=== PATIENT | female | born 1945 | race Caucasian/White ===

== ENCOUNTER 2017-01-02 23:24 | Observation (INO) | payer OTHER ==
[2017-01-02] MEDS ORDERED: ASPIRIN ONE (23:32)
[2017-01-02] MEDS ORDERED: ASPIRIN PO STA (23:33)
[2017-01-02 23:54] LABS: MANUAL DIFF NEEDED? NO
[2017-01-03] MEDS ORDERED: NITROGLYCERIN TOP ONE
--- NOTE | 2017-01-03 00:11 | PROVIDER DOCUMENTATION ---
HPI-Chest Pain - General Chief Complaint: Chest Pain Stated Complaint: CHEST PAIN Time Seen by Provider: 01/02/17 23:32 Source: patient (Patient is a 71 year old obese white female with history of CAD (S/P AR 3 yrs ago,S/P cardiac stents,followed by Dr. Galindo in [place]), hyperlipidemia, and htn who presents with burning left sided chest pain that radiated to left jaw and arm- onset at 745pm tonight while at rest. Denies diaphoresis. Currently chest pain free. Patient took 325mg aspirin this am. Followed by Dr. Redman. Patient also reports associated nausea,shortness of breath, and palpitations this evening.) Allergies/Adverse Reactions: Patient Allergies Allergy/AdvReac Type Severity Reaction Status Date / Time Penicillins Allergy HIVES Verified 01/02/17 23:35 Home Medications: Home Medication List Medication Instructions Recorded Confirmed Last Taken Type Ezetimibe [Zetia] 10 mg PO QHS 12/09/14 01/03/17 01/02/17 History Aspirin 325 mg PO DAILY 11/01/15 01/03/17 01/02/17 History Furosemide 40 mg PO DAILY 11/01/15 01/03/17 01/02/17 History Nitroglycerin Sl [Nitroglycerin] 0.4 mg SL PRN PRN 11/01/15 01/03/17 Unknown History PRAVAstatin [Pravachol] 40 mg PO QHS 11/01/15 01/03/17 01/02/17 History Prasugrel HCl [Effient] 5 mg PO DAILY 11/01/15 01/03/17 01/02/17 History Levothyroxine [Synthroid] 25 microgm PO DAILY #30 tablet 11/04/15 01/03/17 2 Weeks Ago Rx Acetaminophen with Codeine 1 tab PO Q8H PRN PRN 01/02/17 01/02/17 01/02/17 History [Tylenol with Codeine #3] Albuterol Sulfate [Proair Hfa] 01/02/17 Unknown History Diltiazem HCl [Diltiazem ER] 120 mg PO DAILY 01/02/17 01/02/17 01/02/17 History Lisinopril 10 mg PO BID 01/02/17 01/02/17 01/02/17 History Meloxicam 7.5 mg PO DAILY PRN 01/02/17 01/02/17 Unknown History Potassium Chloride [Klor-Con M20] 20 meq PO DAILY 01/02/17 01/02/17 01/02/17 History - History of Present Illness-CP Location: reports: other (left sided chest pain) Chest Pain Radiation: reports: jaw, other (left arm) Quality of Pain: reports: burning Onset/Duration: abrupt (onset about 745pm tonight) Timing: other (resolved on arrival) Context/Activities at Onset: reports: rest Modifying Factors: improves with: nothing Associated Symptoms: denies: diaphoresis Review of Systems - Adult - REVIEW OF SYSTEMS - ADULT Constitutional: denies: chills, fever Eyes: reports: no symptoms reported Ears, Nose, Mouth & Throat: reports: no symptoms reported Cardiovascular: reports: chest pain, palpitations Respiratory: reports: shortness of breath Gastrointestinal: reports: nausea. denies: abdominal pain, vomiting Genitourinary: reports: no symptoms reported Musculoskeletal: reports: no symptoms reported Integumentary: reports: no symptoms reported Neurological: reports: no symptoms reported Psychiatric: reports: no symptoms reported Past History - Adult - PAST MEDICAL HISTORY-ADULT Review of Records: reports: Old Records Reviewed, Nursing Assessment Review, Medications Reviewed, Social history reviewed & non-contributory. Major Childhood Illnesses: reports: denies history Cardiovascular: reports: CAD, HTN, hyperlipidemia Respiratory: reports: denies history Gastrointestinal: reports: denies history Obstetrical/Gynecological: reports: denies history Genitourinary: reports: denies history Musculoskeletal: reports: denies history Neurological: reports: denies history Endocrine/Immune: reports: denies history Other Conditions: reports: denies history - PRIOR SURGERIES/PROCEDURES Surgical/Procedure History: reports: cholecystectomy, BTL - IMMUNIZATION STATUS Childhood Immunizations: See Nurse Assessment Flu Vaccine: See Nurse Assessment - FAMILY HISTORY Family History: reviewed, not pertinent Physical Exam-General - CONSTITUTIONAL General Appearance: alert, no apparent distress, other (nondiaphoretic) - EYES Eyes: other (clear) - HEAD, EARS, NOSE, MOUTH & THROAT HENMT: moist mucous membranes, normal ENT inspection - NECK Neck: non-tender, full range of motion, supple - RESPIRATORY Respiratory: lungs clear, decreased breath sounds - CARDIOVASCULAR Cardiovascular: regular rate, rhythm - GASTROINTESTINAL (ABDOMEN) Abdominal Exam: non tender, soft. negative: guarding, rebound - GENITOURINARY Rectal Exam: deferred - LYMPHATIC Lymphatic: no adenopathy - MUSCULOSKELETAL Back Exam: normal inspection, no CVA tenderness Extremity: normal range of motion, non-tender - SKIN Integumentary: normal color, normal turgor - NEUROLOGIC Neurologic: grossly normal - PSYCHIATRIC Psych/Mental Status: anxious Progress - EKG 1 Time of EKG reading by physician:: 23:31 EKG Read and Signed by:: Thaddeus Ramos Rate: 69 Rhythm: NSR [place]: left QRS: other (LAFB) LA Interval: normal ST Wave: non-specific ST changes Prior EKG Comparison: no prior EKG Comments: no STEMI Departure - Departure Time of Disposition Order: 00:30 DIAGNOSIS: Chest pain Qualifiers: Chest pain type: unspecified Qualified Code(s): R07.9 - Chest pain, unspecified Disposition: ADMITTED INPATIENT 09 Certified Medical Emergency: Emergent Condition: Stable
[2017-01-03 00:25] LABS: ALBUMIN 3.9 g/dL (3.5-5.0); BASO% 0.7 % (0.0-0.8); CALCIUM 9.5 mg/dL (8.8-10.2); EOS# 0.19 X1000 (0.0-0.7); EOS% 1.8 % (0.0-10.0); HEMATOCRIT 44.1 % (37.0-47.0); HEMOGLOBIN 14.2 g/dL (12.0-16.0); IMM GRAN# 0.05 X1000 (0.0-0.04); IMM GRAN% 0.5 % (0.0-0.5); LYMPH# 3.01 X1000 (1.2-3.4); LYMPH% 28.1 % (20.5-51.1); MCHC 32.2 g/dL (33-37); MCV 86.8 FL (81-99); MONO# 1.37 X1000 (0.11-0.59); MONO% 12.8 % (1.7-9.3); MPV 10.2 FL (7.4-10.4); NEUT% 56.1 % (42.2-75.2); PLT 196 X1000 (130-400); RBC 5.08 XMIL (4.2-5.4); TOTAL BILIRUBIN 0.2 mg/dL (0.20-1.00)
[2017-01-03 00:38] LABS: PROTIME 13.5 Seconds (12.1-15.5); PTT PL 27.5 Seconds (22.6-43.9)
[2017-01-03] MEDS ORDERED: FLUZONE QUAD 2016-2017 SYRINGE IM ONE (02:12)
--- NOTE | 2017-01-03 09:23 | EKG Report ---
Test Performed on : 01/03/2017 09:07:57 AM Test Reason : CHEST PAIN Blood Pressure : / mmHG Vent. Rate : 064 BPM Atrial Rate : 064 BPM P-R Int : 180 ms QRS Dur : 116 ms QT Int : 442 ms P-R-T Axes : 053 -61 105 degrees QTc Int : 455 ms Normal sinus rhythm. Left anterior fascicular block Left ventricular hypertrophy with QRS widening and repolarization abnormality Septal infarct , age undetermined Abnormal ECG When compared with ECG of 02-JAN-2017 23:31, (Unconfirmed) QRS duration has increased Septal infarct is now present Nonspecific T wave abnormality no longer evident in Inferior leads Unconfirmed Result
--- NOTE | 2017-01-03 09:25 | EKG Report ---
Test Performed on : 01/02/2017 11:31:13 PM Test Reason : Chest Pain Blood Pressure : / mmHG Vent. Rate : 069 BPM Atrial Rate : 069 BPM P-R Int : 178 ms QRS Dur : 086 ms QT Int : 406 ms P-R-T Axes : 048 -50 118 degrees QTc Int : 435 ms Normal sinus rhythm. Left anterior fascicular block Voltage criteria for left ventricular hypertrophy ST & T wave abnormality, consider lateral ischemia Abnormal ECG When compared with ECG of 02-JUN-2016 15:30, T wave inversion less evident in Lateral leads Unconfirmed Result
--- NOTE | 2017-01-03 09:41 | Diag Imaging Result Document ---
PROCEDURE NAME: CHEST-PORTABLE - 01/03/2017 AP PORTABLE CHEST ERECT, 01/03/2017 AT 0032 HOURS: Normal chest.
[2017-01-03] MEDS ORDERED: NITROGLYCERIN SL PRN (10:02)
[2017-01-03] MEDS ORDERED: MOBIC PO PRN (10:02)
[2017-01-03] MEDS ORDERED: TYLENOL WITH CODEINE #3 PO PRN (10:02)
[2017-01-03 11:55] VITALS: BP 149/62
[2017-01-03] MEDS ORDERED: ZETIA PO SCH (21:00)
[2017-01-03] MEDS ORDERED: PRINIVIL PO SCH (21:00)
[2017-01-03] MEDS ORDERED: PRAVACHOL PO SCH (21:00)
[2017-01-04] MEDS ORDERED: KLOR-CON PO SCH (09:00)
[2017-01-04] MEDS ORDERED: EFFIENT PO SCH (09:00)
[2017-01-04] MEDS ORDERED: CARDIZEM CD PO SCH (09:00)
[2017-01-04] MEDS ORDERED: SYNTHROID PO SCH (09:00)
[2017-01-04] MEDS ORDERED: ASPIRIN PO SCH (09:00)
[2017-01-04] MEDS ORDERED: LASIX PO SCH (09:00)
== END 2017-01-03 14:17 | disposition home or self-care (01) ==
LOC: P.ED 23:24 → P.MEDSURG 01-03 01:05
PROVIDERS: ADMIT Internal Medicine; ATTEND Internal Medicine
DX: R07.9 Chest pain, unspecified (principal); R00.2 Palpitations; I25.10 Atherosclerotic heart disease of native coronary artery without angina pectoris; Z95.5 Presence of coronary angioplasty implant and graft; I25.2 Old myocardial infarction; E66.9 Obesity, unspecified; Z68.42 Body mass index [BMI] 45.0-49.9, adult; I10 Essential (primary) hypertension; E78.5 Hyperlipidemia, unspecified; Z79.82 Long term (current) use of aspirin; Z79.899 Other long term (current) drug therapy; R06.02 Shortness of breath; Z79.02 Long term (current) use of antithrombotics/antiplatelets
CPT/HCPCS: 71010; 80053; 82550; 83735; 83880; 84484; 85025; 85379; 85610; 85730; 93005; 94761; 99285